=== PATIENT | female | born 2000 | race African-American/Black ===

== ENCOUNTER 2019-09-07 21:34 | Emergency (ER) | payer OTHER ==
--- NOTE | 2019-09-07 21:57 | PDOC ---
Rapid Medical Evaluation Time Seen by Provider: 09/07/19 21:37 Medical Evaluation: Allergies Allergy/AdvReac Type Severity Reaction Status Date / Time No Known Allergies Allergy Verified 12/09/14 12:49 09/07/19 21:52 CC: "I have been talking to God." Patient is a college student that disappeared for 2 weeks while conversing with God. PE: poor eye contact. Flat affect. Orders: labs, urine, CTH Patient will proceed to the ER for further evaluation. 09/07/19 21:57 Discharge Disposition - Diagnosis Depression - Referrals - Patient Instructions - Post Discharge Activity
[2019-09-07 22:14] VITALS: BMI 21.4
[2019-09-07 22:48] LABS: BASO % 0.4 % (0-2.0); HEMATOCRIT 36.2 % (32.4-45.2); HEMOGLOBIN 11.7 GM/dL (10.7-15.3); LYMPH % 12.3 % (8-40); MCH 26.4 pg (25.7-33.7); MCHC 32.3 g/dl (32.0-36.0); MEAN CELL VOLUME 81.7 fl (80-96); MEAN PLT VOLUME 8.8 fl (7.5-11.1); MONO % 11.9 % (3.8-10.2); NEUT % 75.4 % (42.8-82.8); PLATELET COUNT 209 K/MM3 (134-434); RBC 4.44 M/mm3 (3.60-5.2); WHITE BLOOD COUNT 6.3 K/mm3 (4.0-10.0)
[2019-09-07 22:56] LABS: EPI CELLS 30.8 /HPF (0-5/HPF); HYALINE CASTS 92 /lpf (0-8); URINE APPEARANCE CLOUDY; URINE BACTERIA 2106.6 /hpf (NEGATIVE); URINE BILIRUBIN NEGATIVE (NEGATIVE); URINE COLOR YELLOW; URINE GLUCOSE (UA) NEGATIVE (NEGATIVE); URINE KETONE TRACE (NEGATIVE); URINE LEUK ESTERASE NEGATIVE (NEGATIVE); URINE NITRITE NEGATIVE (NEGATIVE); URINE PROTEIN 2+ (NEGATIVE)
[2019-09-07 23:02] LABS: COCAINE, UR NEGATIVE ng/ml (CUTOFF=300); PHENCYCLIDINE,URINE NEGATIVE ng/ml (CUTOFF=25); URINE AMPHETAMINES NEGATIVE ng/ml (CUTOFF=500); URINE BARBITURATES NEGATIVE ng/ml (CUTOFF=200)
[2019-09-07 23:03] LABS: METHADONE, UR NEGATIVE ng/ml (CUTOFF=300); OPIATES, URI NEGATIVE ng/ml (CUTOFF=300); URINE BENZODIAZEPINES NEGATIVE ng/ml (CUTOFF=200)
[2019-09-07 23:13] LABS: ALBUMIN 4.1 g/dl (3.4-5.0); ALK PHOS 51 U/L (45-117); ANION GAP 10 MMOL/L (8-16); BILIRUBIN,TOTAL 0.2 mg/dL (0.2-1); BLOOD UREA NITROGEN 12.7 mg/dL (7-18); CALCIUM 9.3 mg/dL (8.5-10.1); CHLORIDE 105 mmol/L (98-107); CO2 26 mmol/L (21-32); CREATININE 0.9 mg/dL (0.55-1.3); GLUCOSE,RANDOM 144 mg/dL (74-106); POTASSIUM 3.6 mmol/L (3.5-5.1); SGOT/AST 22 U/L (15-37); SGPT/ALT 25 U/L (13-61); SODIUM 141 mmol/L (136-145); TOT PROT 7.6 g/dl (6.4-8.2)
[2019-09-08 00:07] LABS: URINE RBC 5.8 /hpf (0-4); URINE WBC 11.8 /hpf (0-5)
--- NOTE | 2019-09-08 00:30 | PDOC ---
Attending Attestation - Resident Resident Name: Maicol Esquivel - ED Attending Attestation I have performed the following: I have examined & evaluated the patient, The case was reviewed & discussed with the resident, I agree w/resident's findings & plan - HPI HPI: 09/08/19 00:26 see resident hpi - Physicial Exam PE: 09/08/19 00:26 agree with resident exam - Medical Decision Making 09/08/19 00:26 19-year-old female with auditory hallucinations and reclusive behavior History consistent with possible schizophrenia/psychosis Patient is medically cleared Fortunately patient and mother agree to stay for psychiatric consultation
--- NOTE | 2019-09-08 01:03 | PDOC ---
History of Present Illness <Vipin Richards - Last Filed: 09/08/19 09:55> - General History Source: Patient Exam Limitations: No Limitations - History of Present Illness Initial Comments: 09/08/19 05:26 19 yo F with no past medical history presents with mother for auditory hallucinations and behavioral changes. Per the mother, the patient dropped out of college 1 year ago to "find her own way" and stated she was hearing "words from God". The patient admits to auditory hallucinations which she states she writes down in her phone. Denies pain. Denies recent drug use. Denies the following: fevers, chills, SOB, chest pain, lightheadedness, nausea, vomiting, abdominal pain, dysuria, hematuria, diarrhea, leg pain/swelling, and diarrhea. She denies visual hallucinations and tactile hallucinations. The patient repeatedly stated that she was not crazy. Denies SI/HI. States she lives intermittently in her car and her uncle's house. Allergies: NKDA Meds: None Social: Denies tobacco, alcohol, and substance abuse Shx: None <Maicol Esquivel - Last Filed: 09/08/19 17:50> - General Chief Complaint: Psychiatric Stated Complaint: CONFUSED Time Seen by Provider: 09/07/19 21:37 Past History <Vipin Richards - Last Filed: 09/08/19 09:55> - Past Medical History COPD: No - Immunization History Immunization Up to Date: Yes - Psycho Social/Smoking Cessation Hx Smoking History: Never smoked Have you smoked in the past 12 months: No Information on smoking cessation initiated: No Hx Alcohol Use: No Drug/Substance Use Hx: No <Maicol Esquivel - Last Filed: 09/08/19 17:50> - Past Medical History Allergies/Adverse Reactions: Allergies Allergy/AdvReac Type Severity Reaction Status Date / Time No Known Allergies Allergy Verified 12/09/14 12:49 Home Medications: Ambulatory Orders NK [No Known Home Medication] 09/08/19 Review of Systems - Review of Systems Able to Perform ROS?: Yes Is the patient limited Bahraini proficient: No Constitutional: No: Chills, Diaphoresis, Fever, Weakness HEENTM: No: Eye Pain, Ear Pain, Nose Pain, Throat Pain, Mouth Pain Respiratory: No: Cough, Shortness of Breath, Hemoptysis Cardiac (ROS): No: Chest Pain, Lightheadedness, Palpitations, Syncope ABD/GI: No: Constipated, Diarrhea, Nausea, Rectal Bleeding, Vomiting, Tarry Stools : No: Burning, Dysuria, Hematuria, Incontinence Musculoskeletal: No: Back Pain, Joint Pain, Muscle Weakness, Neck Pain Integumentary: No: Bruising, Erythema, Rash Neurological: No: Headache, Numbness, Tingling, Tremors Psychiatric: Yes: Other (auditory hallucinations). No: Change in Appetite Endocrine: No: Excessive Sweating, Increased Hunger, Unexplained Weight Gain Hematologic/Lymphatic: No: Anemia <Maciol Esquivel - Last Filed: 09/08/19 17:50> *Physical Exam - Vital Signs Last Vital Signs Temp Pulse Resp BP Pulse Ox 98.2 F 110 H 20 127/85 96 09/07/19 21:59 09/08/19 06:46 09/08/19 06:46 09/08/19 06:46 09/08/19 06:46 <Vipin Richards - Last Filed: 09/08/19 09:55> - Vital Signs Last Vital Signs Temp Pulse Resp BP Pulse Ox 98.2 F 130 H 18 115/73 100 09/07/19 21:59 09/07/19 21:59 09/07/19 21:59 09/07/19 21:59 09/07/19 21:59 - Physical Exam General Appearance: Yes: Nourished, Appropriately Dressed, Other (poor eye contact. flat affect). No: Apparent Distress, Intoxicated HEENT: positive: EOMI, IVIS, Normal ENT Inspection, Normal Voice, Symmetrical, TMs Normal, Pharynx Normal, Hearing Grossly Normal. negative: Pale Conjunctivae , Scleral Icterus (R), Scleral Icterus (L), Muffled/Hoarse voice, Pharyngeal Erythema, Tonsillar Exudate, Tonsillar Erythema, Nasal Congestion, Rhinorrhea, Excessive drooling Neck: positive: Trachea midline, Supple. negative: Tender, Lymphadenopathy (R) , Lymphadenopathy (L), Tender lateral, Tender midline Respiratory/Chest: positive: Lungs Clear, Normal Breath Sounds. negative: Chest Tender, Respiratory Distress, Accessory Muscle Use, Stridor, Wheezing Cardiovascular: positive: Regular Rhythm, S1, S2, Tachycardia. negative: Systolic Murmur Gastrointestinal/Abdominal: positive: Normal Bowel Sounds, Flat, Soft. negative : Tender Lymphatic: negative: Adenopathy Musculoskeletal: positive: Normal Inspection. negative: CVA Tenderness, Vertebral Tenderness Extremity: positive: Normal Capillary Refill, Normal Inspection, Normal Range of Motion. negative: Tender Integumentary: positive: Normal Color, Dry, Warm Neurologic: positive: [employer] II-XII NML intact, Alert, Motor Strength 5/5, Other ( flat affect. poor eye contact. avoidant. ). negative: Normal Mood/Affect, EOM Palsy, Facial Droop, Numbness, Sensory Deficit <Maicol Esquivel - Last Filed: 09/08/19 17:50> ED Treatment Course - LABORATORY CBC & Chemistry Diagram: 09/07/19 22:34 09/07/19 22:34 - ADDITIONAL ORDERS Additional order review: Laboratory Results 09/07/19 09/07/19 09/07/19 22:37 22:37 22:37 Sodium Potassium Chloride Carbon Dioxide Anion Gap BUN Creatinine Est GFR (CKD-EPI)AfAm Est GFR (CKD-EPI)NonAf Random Glucose Calcium Total Bilirubin AST ALT Alkaline Phosphatase Total Protein Albumin TSH Urine Color Yellow Urine Appearance Cloudy Urine pH 6.0 Ur Specific Auberry 1.028 Urine Protein 2+ H Urine Glucose (UA) Negative Urine Ketones Trace H Urine Blood Negative Urine Nitrite Negative Urine Bilirubin Negative Urine Urobilinogen 1.0 Ur Leukocyte Esterase Negative Urine WBC (Auto) 11.8 Urine RBC (Auto) 5.8 Urine Casts (Auto) 92 U Pathogenic Cast Auto None seen U Epithel Cells (Auto) 30.8 Urine Bacteria (Auto) 2106.6 Urine HCG, Qual Negative Opiates Screen Negative Methadone Screen Negative Barbiturate Screen Negative Phencyclidine Screen Negative Ur Amphetamines Screen Negative MDMA (Ecstasy) Screen Negative Benzodiazepines Screen Negative Cocaine Screen Negative U Marijuana (THC) Screen Positive A* Alcohol, Quantitative 09/07/19 09/07/19 22:34 22:34 Sodium 141 Potassium 3.6 Chloride 105 Carbon Dioxide 26 Anion Gap 10 BUN 12.7 Creatinine 0.9 Est GFR (CKD-EPI)AfAm 105.93 Est GFR (CKD-EPI)NonAf 91.40 Random Glucose 144 H Calcium 9.3 Total Bilirubin 0.2 AST 22 ALT 25 Alkaline Phosphatase 51 Total Protein 7.6 Albumin 4.1 TSH 1.76 Urine Color Urine Appearance Urine pH Ur Specific Auberry Urine Protein Urine Glucose (UA) Urine Ketones Urine Blood Urine Nitrite Urine Bilirubin Urine Urobilinogen Ur Leukocyte Esterase Urine WBC (Auto) Urine RBC (Auto) Urine Casts (Auto) U Pathogenic Cast Auto U Epithel Cells (Auto) Urine Bacteria (Auto) Urine HCG, Qual Opiates Screen Methadone Screen Barbiturate Screen Phencyclidine Screen Ur Amphetamines Screen MDMA (Ecstasy) Screen Benzodiazepines Screen Cocaine Screen U Marijuana (THC) Screen Alcohol, Quantitative < 3.0 09/07/19 22:34 RBC 4.44 MCV 81.7 MCHC 32.3 RDW 14.0 MPV 8.8 Neutrophils % 75.4 Lymphocytes % 12.3 Monocytes % 11.9 H Eosinophils % 0.0 Basophils % 0.4 <Vipin Richards - Last Filed: 09/08/19 09:55> - LABORATORY CBC & Chemistry Diagram: 09/07/19 22:34 09/07/19 22:34 - ADDITIONAL ORDERS Additional order review: Laboratory Results 09/07/19 09/07/19 09/07/19 22:37 22:37 22:37 Sodium Potassium Chloride Carbon Dioxide Anion Gap BUN Creatinine Est GFR (CKD-EPI)AfAm Est GFR (CKD-EPI)NonAf Random Glucose Calcium Total Bilirubin AST ALT Alkaline Phosphatase Total Protein Albumin TSH Urine Color Yellow Urine Appearance Cloudy Urine pH 6.0 Ur Specific Auberry 1.028 Urine Protein 2+ H Urine Glucose (UA) Negative Urine Ketones Trace H Urine Blood Negative Urine Nitrite Negative Urine Bilirubin Negative Urine Urobilinogen 1.0 Ur Leukocyte Esterase Negative Urine WBC (Auto) 11.8 Urine RBC (Auto) 5.8 Urine Casts (Auto) 92 U Pathogenic Cast Auto None seen U Epithel Cells (Auto) 30.8 Urine Bacteria (Auto) 2106.6 Urine HCG, Qual Negative Opiates Screen Negative Methadone Screen Negative Barbiturate Screen Negative Phencyclidine Screen Negative Ur Amphetamines Screen Negative MDMA (Ecstasy) Screen Negative Benzodiazepines Screen Negative Cocaine Screen Negative U Marijuana (THC) Screen Positive A* Alcohol, Quantitative 09/07/19 09/07/19 22:34 22:34 Sodium 141 Potassium 3.6 Chloride 105 Carbon Dioxide 26 Anion Gap 10 BUN 12.7 Creatinine 0.9 Est GFR (CKD-EPI)AfAm 105.93 Est GFR (CKD-EPI)NonAf 91.40 Random Glucose 144 H Calcium 9.3 Total Bilirubin 0.2 AST 22 ALT 25 Alkaline Phosphatase 51 Total Protein 7.6 Albumin 4.1 TSH 1.76 Urine Color Urine Appearance Urine pH Ur Specific Auberry Urine Protein Urine Glucose (UA) Urine Ketones Urine Blood Urine Nitrite Urine Bilirubin Urine Urobilinogen Ur Leukocyte Esterase Urine WBC (Auto) Urine RBC (Auto) Urine Casts (Auto) U Pathogenic Cast Auto U Epithel Cells (Auto) Urine Bacteria (Auto) Urine HCG, Qual Opiates Screen Methadone Screen Barbiturate Screen Phencyclidine Screen Ur Amphetamines Screen MDMA (Ecstasy) Screen Benzodiazepines Screen Cocaine Screen U Marijuana (THC) Screen Alcohol, Quantitative < 3.0 09/07/19 22:34 RBC 4.44 MCV 81.7 MCHC 32.3 RDW 14.0 MPV 8.8 Neutrophils % 75.4 Lymphocytes % 12.3 Monocytes % 11.9 H Eosinophils % 0.0 Basophils % 0.4 - RADIOLOGY Radiology Studies Ordered: Category Date Time Status CXRPORT [CHEST X-RAY PORTABLE*] [RAD] Stat Radiology 09/07/19 23:53 Ordered <Maicol Esquivel - Last Filed: 09/08/19 17:50> Medical Decision Making - Medical Decision Making 09/08/19 09:55 pt medically cleared <Vipin Rcihards - Last Filed: 09/08/19 09:55> - Medical Decision Making 19 yo F with no past medical history presents with mother for auditory hallucinations and behavioral changes. Per the mother, the patient dropped out of college 1 year ago to "find her own way" and stated she was hearing "words from God". Initial vitals: Initial Vital Signs Temp Pulse Resp BP Pulse Ox 98.2 F 130 H 18 115/73 100 09/07/19 21:59 09/07/19 21:59 09/07/19 21:59 09/07/19 21:59 09/07/19 21:59 Work up: patient presents with auditory hallucinations, flat affect, poor eye contact, unable to complete school or maintain employment. patient is present with her mother. will obtain labs and imaging to rule out organic causes of hallucinations 09/08/19 07:16 A call was placed to Dr. Tomlinson at approximately 12 am and 6 am. Awaiting call back for psych evaluation. Patient continues to state she is not crazy and has on multiple occassions wanted to leave but was redirectable. Mother and boyfriend of patient at bedside. Laboratory Tests 09/07/19 09/07/19 09/07/19 22:34 22:34 22:34 WBC 6.3 RBC 4.44 Hgb 11.7 Hct 36.2 MCV 81.7 MCH 26.4 MCHC 32.3 RDW 14.0 Plt Count 209 MPV 8.8 Absolute Neuts (auto) 4.8 Neutrophils % 75.4 Lymphocytes % 12.3 Monocytes % 11.9 H Eosinophils % 0.0 Basophils % 0.4 Nucleated RBC % 0 Sodium 141 Potassium 3.6 Chloride 105 Carbon Dioxide 26 Anion Gap 10 BUN 12.7 Creatinine 0.9 Est GFR (CKD-EPI)AfAm 105.93 Est GFR (CKD-EPI)NonAf 91.40 Random Glucose 144 H Calcium 9.3 Total Bilirubin 0.2 AST 22 ALT 25 Alkaline Phosphatase 51 Total Protein 7.6 Albumin 4.1 TSH 1.76 Urine Color Urine Appearance Urine pH Ur Specific Auberry Urine Protein Urine Glucose (UA) Urine Ketones Urine Blood Urine Nitrite Urine Bilirubin Urine Urobilinogen Ur Leukocyte Esterase Urine WBC (Auto) Urine RBC (Auto) Urine Casts (Auto) U Pathogenic Cast Auto U Epithel Cells (Auto) Urine Bacteria (Auto) Urine HCG, Qual Opiates Screen Methadone Screen Barbiturate Screen Phencyclidine Screen Ur Amphetamines Screen MDMA (Ecstasy) Screen Benzodiazepines Screen Cocaine Screen U Marijuana (THC) Screen Alcohol, Quantitative < 3.0 09/07/19 09/07/19 09/07/19 22:37 22:37 22:37 WBC RBC Hgb Hct MCV MCH MCHC RDW Plt Count MPV Absolute Neuts (auto) Neutrophils % Lymphocytes % Monocytes % Eosinophils % Basophils % Nucleated RBC % Sodium Potassium Chloride Carbon Dioxide Anion Gap BUN Creatinine Est GFR (CKD-EPI)AfAm Est GFR (CKD-EPI)NonAf Random Glucose Calcium Total Bilirubin AST ALT Alkaline Phosphatase Total Protein Albumin TSH Urine Color Yellow Urine Appearance Cloudy Urine pH 6.0 Ur Specific Auberry 1.028 Urine Protein 2+ H Urine Glucose (UA) Negative Urine Ketones Trace H Urine Blood Negative Urine Nitrite Negative Urine Bilirubin Negative Urine Urobilinogen 1.0 Ur Leukocyte Esterase Negative Urine WBC (Auto) 11.8 Urine RBC (Auto) 5.8 Urine Casts (Auto) 92 U Pathogenic Cast Auto None seen U Epithel Cells (Auto) 30.8 Urine Bacteria (Auto) 2106.6 Urine HCG, Qual Negative Opiates Screen Negative Methadone Screen Negative Barbiturate Screen Negative Phencyclidine Screen Negative Ur Amphetamines Screen Negative MDMA (Ecstasy) Screen Negative Benzodiazepines Screen Negative Cocaine Screen Negative U Marijuana (THC) Screen Positive A* Alcohol, Quantitative Patient refused CXR. EKG shows nSR without st elevations or depressions labs show UTI and positive marijuana Patient was signed out to day team. patient will likely need psychiatric inpatient admission for initial psychotic episode. head ct was within normal limits. <Maicol Esquivel - Last Filed: 09/08/19 17:50> Discharge <Vipin Richards - Last Filed: 09/08/19 09:55> - Discharge Information Problems reviewed: Yes <Maicol Esquivel - Last Filed: 09/08/19 17:50> - Discharge Information Clinical Impression/Diagnosis: Depression, Auditory hallucinations - Follow up/Referral Referrals: Niels Parham [Primary Care Provider] - - Patient Discharge Instructions - Post Discharge Activity
[2019-09-08] MEDS ORDERED: OLANZapine 5 MG TABLET PO ONE ×2 (09:57→11:25)
--- NOTE | 2019-09-08 09:57 | CON.PSY ---
Psychiatry Consult Chief Complaint: 19 [place] old female, college drop out, has been living in her car for a month. She went to her uncles house and ran away in the rain. She has been hearing Gods voice telling her to live her life in a different way.Very angry and refusing to answer any questions at this time. Symptoms: reports: Impulsivity, Hallucinations, Paranoia - Previous Psychiatric Treatment Outpatient: None Inpatient: None - Previous Substance Abuse Treatment Outpatient: None Inpatient: None - Allergies Allergies: Allergies Allergy/AdvReac Type Severity Reaction Status Date / Time No Known Allergies Allergy Verified 12/09/14 12:49 - Current Living Status Usual Living Arrangement: Alone - Current Mental Status Evaluation Appearance: Well Groomed Attitude: Suspicious - Affect Affect: Constrictive Appropriateness: Not Appropriate - Mood Mood: Angry - Speech/Language Expressive: Coherent - Psychomotor Activity Psychomotor Activity: Agitated - Thought Process Thought Process: Intact - Thought Content Type: Auditory Type: Persectory - Self Perception Self Perception: No Impairment - Cognition Attention: Alert Orientation: Time Memory, Immediate Recall: Intact Memory, Short Term: 3/3 Memory, Remote with Promptin/3 - Concentration Serial Sevens Intact: No Simple Calculations Intact: Yes - Abstraction Proverb Interpretation: Grant Judgement: Severely Impaired - Insight Insight: Impaired - Impulse Control Impulse Control: Moderately Impaired - Suicidal Ideation Suicidal Ideation: No - Homicidal Ideation Homicidal Ideation: No Assessment/Plan 1) Zyprexa 5mg po od. 2) Needs In Patient Psych admission for First Psychotic episode, on a 2 PC.
--- NOTE | 2019-09-08 09:58 | EKG ---
Test Reason : Blood Pressure : / mmHG Vent. Rate : 099 BPM Atrial Rate : 099 BPM P-R Int : 160 ms QRS Dur : 088 ms QT Int : 342 ms P-R-T Axes : 061 021 035 degrees QTc Int : 438 ms NORMAL SINUS RHYTHM NORMAL ECG NO PREVIOUS ECGS AVAILABLE Confirmed by PETER ELIAS, RAYMOND ([id number]) on 09/08/2019 9:57:46 AM Referred By: Confirmed By:RAYMOND GREEN MD
[2019-09-08] MEDS ORDERED: OLANZapine 10 MG TABLET ONE ×2 (10:25→11:22)
--- NOTE | 2019-09-08 20:16 | PDOC ---
*Physical Exam - Vital Signs Last Vital Signs Temp Pulse Resp BP Pulse Ox 99.0 F 115 H 17 124/64 100 09/08/19 19:00 09/08/19 19:00 09/08/19 19:00 09/08/19 19:00 09/08/19 19:00 ED Treatment Course - LABORATORY CBC & Chemistry Diagram: 09/07/19 22:34 09/07/19 22:34 - ADDITIONAL ORDERS Additional order review: 09/07/19 22:34 RBC 4.44 MCV 81.7 MCHC 32.3 RDW 14.0 MPV 8.8 Neutrophils % 75.4 Lymphocytes % 12.3 Monocytes % 11.9 H Eosinophils % 0.0 Basophils % 0.4 - Medications Given in the ED: ED Medications Discontinued Medications Generic Name Dose Route Start Last Admin Trade Name Freq PRN Reason Stop Dose Admin Olanzapine 5 mg 09/08/19 09:57 09/08/19 10:46 Zyprexa - PO 09/08/19 09:58 Not Given ONCE ONE Olanzapine 5 mg 09/08/19 11:25 09/08/19 11:43 Zyprexa - PO 09/08/19 11:26 5 mg ONCE ONE Administration Medical Decision Making - Medical Decision Making 09/08/19 20:14 pt resting comfortably pending psych placement has been medically cleared seen by psych 09/08/19 22:38 pt pending placement, still resting comfortably 09/08/19 23:04 pt has been accepted to [facility] dr. sorto is the accepting doc Discharge - Discharge Information Problems reviewed: Yes Clinical Impression/Diagnosis: Depression, Auditory hallucinations Condition: Fair Disposition: TRANSFER ACUTE CARE/OTHER HOSP - Follow up/Referral Referrals: Niels Parham [Primary Care Provider] - - Patient Discharge Instructions - Post Discharge Activity
[2019-09-09 00:15] VITALS: TEMP 98.1
[2019-09-09 01:11] VITALS: BP 121/63; PULSE 105
== END 2019-09-09 00:45 | disposition short-term general hospital (02) ==
LOC: JER 21:34
DX: R44.0 Auditory hallucinations (principal); F32.9 Major depressive disorder, single episode, unspecified
CPT/HCPCS: 36415; 70450-TC; 80053; 80307; 81003; 84443; 84703; 85025; 93005; 93010; 99285-25

== ENCOUNTER 2024-02-16 18:07 | Emergency (ER) | payer OTHER ==
[2024-02-16 18:38] VITALS: BP 116/61; PULSE 88; RESP 17; TEMP 98.4; BMI 19.7
== END 2024-02-16 20:19 | disposition home or self-care (01) ==
LOC: JER 18:07 → JERFT 18:07
DX: Z76.0 Encounter for issue of repeat prescription (principal)
CPT/HCPCS: 99283-25

== ENCOUNTER 2025-08-21 20:11 | Emergency (ER) | payer OTHER ==
[2025-08-21 20:19] VITALS: BP 100/70; PULSE 98; RESP 18; TEMP 98.8; BMI 19.9
[2025-08-21] MEDS ORDERED: IBUPROFEN 400 MG TABLET (FP) PO ONE (21:05)
[2025-08-21] MEDS: IBUPROFEN 400 MG TABLET (FP) PO ONE (21:08)
== END 2025-08-21 22:35 | disposition home or self-care (01) ==
LOC: JERFT 20:11
DX: R07.0 Pain in throat (principal)
CPT/HCPCS: 87651; 99283-25